=== PATIENT | male | born 1955 | race Caucasian/White ===

== ENCOUNTER → 2024-08-27 | Outpatient (CLI) | payer MEDICARE ==
--- NOTE | 2024-08-27 13:47 | CT ---
EXAMINATION TYPE: CT brain wo con CT DLP: 1064.3 mGycm, Automated exposure control for dose reduction was used. DATE OF EXAM: 08/27/2024 1:05 PM COMPARISON: None. CLINICAL INDICATION:Male, 69 years old with history of G30.0 Alzheimer's early onset, MEMORY LOSS TECHNIQUE: Brain: Multiple axial CT images of the brain were obtained without IV contrast. . Coronal and sagitta l reformats reviewed. FINDINGS: Brain: Extra-axial spaces: No abnormal extra-axial fluid collections. Ventricular system: Within normal limits Cerebral parenchyma: Mild diffuse cerebral atrophy. No acute intraparenchymal hemorrhage or mass effe ct. The morales-white junction is well differentiated. Scattered hypoattenuating areas are seen within the periventricular white matter. Empty sella morphology. Cerebellum: Unremarkable. Mass effect: No evidence of midline shift. Intracranial vasculature: Atherosclerotic calcifications of the intracranial vessels. Soft tissues: Normal. Calvarium/osseous structures: No depressed skull fracture. Paranasal sinuses and mastoid air cells: Mild to moderate scattered paranasal sinus disease. Mastoid air cells are clear. Cerumen within the left external auditory canal. Visualized orbits: Orbital contents are intact. IMPRESSION: 1. No acute intracranial process. 2. Mild cerebral atrophy with nonspecific white matter changes, likely secondary to chronic small ves collin ischemic disease. [facility], , 08/27/2024 1:45 PM
== END | disposition home or self-care (01) ==
LOC: RADCTMAIN 12:12
PROVIDERS: ATTEND Family Medicine
DX: G30.0 Alzheimer's disease with early onset (principal); R41.82 Altered mental status, unspecified; R41.3 Other amnesia; G31.9 Degenerative disease of nervous system, unspecified; R90.82 White matter disease, unspecified
CPT/HCPCS: 70450

== ENCOUNTER 2024-11-12 08:51 | Day surgery (SDC) | payer MEDICARE ==
[2024-11-12 09:52] VITALS: TEMP 97.8
[2024-11-12] MEDS: LACTATED RINGERS 1,000 ML IV SCH (09:52)
[2024-11-12] MEDS: IV FLUID CONTINUATION 1,000 ML IV ONE (09:52)
[2024-11-12] MEDS ORDERED: PROPOFOL 10 MG/ML 20 ML VIAL IV ONE (09:59)
--- NOTE | 2024-11-12 10:20 | P.PCN ---
Date of Procedure: 11/12/24 Preoperative Diagnosis: Screening Postoperative Diagnosis: External hemorrhoids, mild rectal prolapse Procedure(s) Performed: Colonoscopy Anesthesia: MAC Surgeon: Ida Pack Pathology: none sent Condition: stable Disposition: same day Indications for Procedure: 69-year-old male presents today for screening colonoscopy. Risks, benefits and alternatives were provided to the patient. Denies any blood in his stool. Operative Findings: External hemorrhoids/mild rectal prolapse Description of Procedure: The patient was brought to the endoscopy suite and placed in left lateral decubitus position and adequate sedation was achieved using conscious sedation. Digital rectal exam was performed and mild rectal prolapse was noted. An endoscope was then placed in the rectum and advanced to the cecum as identified by landmarks including the appendiceal orifice and the ileocecal valve. The prep was good. The colonoscope was then slowly withdrawn, examining for any mucosal abnormalities. The cecum, ascending, transverse, descending and sigmoid colon were visualized adequately. There were no large neoplastic lesions noted throughout the colon. No obvious polyps noted throughout the colon. No evidence of diverticulosis. Hemostasis was maintained. Retroflexion was performed in the rectum and mild internal hemorrhoids and external hemorrhoids were noted. Mild rectal prolapse noted. Excess air was removed, the colonoscope withdrawn and the procedure terminated. The patient was then transferred to the recovery unit in stable condition. Repeat colonoscopy should be performed in 7 years.
[2024-11-12 10:37] VITALS: BP 146/83; PULSE 68; RESP 16
== END 2024-11-12 11:15 | disposition home or self-care (01) ==
LOC: ORWHC2ENDO 08:51
PROVIDERS: ATTEND Surgery
DX: Z12.11 Encounter for screening for malignant neoplasm of colon (principal); K64.4 Residual hemorrhoidal skin tags; K62.3 Rectal prolapse; I10 Essential (primary) hypertension; G30.0 Alzheimer's disease with early onset; F02.80 Dementia in other diseases classified elsewhere, unspecified severity, without behavioral disturbance, psychotic disturbance, mood disturbance, and anxiety; N52.9 Male erectile dysfunction, unspecified; F17.210 Nicotine dependence, cigarettes, uncomplicated; Z79.899 Other long term (current) drug therapy
CPT/HCPCS: G0121; J2704

== ENCOUNTER → 2024-11-14 | Outpatient (CLI) | payer MEDICARE ==
--- NOTE | 2024-11-14 09:04 | MR ---
EXAMINATION TYPE: MR angio head wo con DATE OF EXAM: 11/14/2024 8:57 AM COMPARISON: None. CLINICAL INDICATION: Male, 69 years old with history of CVA, Neoplasm vs CVA, Suspect Right parietal lobe, Forgetfulness IV Contrast: cc (None if empty) TECHNIQUE: Time of flight images focusing on the [place] were performed without contrast. FINDINGS: There is no sizable aneurysm sac, vascular malformation or occlusive disease. IMPRESSION: No significant abnormality seen. [facility], Workstation: [facility], 11/14/2024 9:01 AM
--- NOTE | 2024-11-14 09:09 | MR ---
EXAMINATION TYPE: MR brain wo/w con DATE OF EXAM: 11/14/2024 8:58 AM COMPARISON: None. CLINICAL INDICATION: Male, 69 years old with history of I67.9 CVA, Neoplasm vs CVA, Suspect Right par ietal lobe, Forgetfulness IV Contrast: 9.5 cc Gadobutrol (None if empty) TECHNIQUE: Multiplanar, multisequence images of the brain and brainstem is performed without and with IV contras t, utilizing 9.5 mL intravenous Gadobutrol . Findings: On the T1-weighted sagittal images, the craniovertebral junction relationships are normal. There is a partial empty sella turcica. The ventricles, basal cisterns and sulci over convexities are moderately enlarged consistent with mod erate generalized atrophy No abnormal signal intensity is seen throughout the brain parenchyma. On the diffusion-weighted images, there is no diffusion restriction or acute ischemic event. On the postcontrast images, there is no pathological enhancement throughout the brain parenchyma. On the susceptibility weighted images, there is no parenchymal hemorrhage. The posterior fossa including the brainstem, fourth ventricle and cerebellopontine angles appear norm al. The intraorbital contents appear normal and symmetric. There are mild chronic inflammatory changes in the frontal, ethmoid and maxillary sinuses. The mastoi d air cells are well aerated. IMPRESSION: 1. No mass, mass effect or pathological enhancement or acute ischemic event. 2. Mild chronic inflammatory changes in the paranasal sinuses. 3. Moderate generalized atrophy. [facility], , 11/14/2024 9:07 AM
== END | disposition home or self-care (01) ==
LOC: RADMRIMAIN 07:46
PROVIDERS: ATTEND Psychiatry & Neurology Neurology
DX: I67.9 Cerebrovascular disease, unspecified (principal); G31.89 Other specified degenerative diseases of nervous system; J34.89 Other specified disorders of nose and nasal sinuses
CPT/HCPCS: 70544; 70553; A9585